=== PATIENT | female | born 1995 | race Caucasian/White ===

== ENCOUNTER 2017-12-15 12:44 | Observation (INO) | payer OTHER ==
[2017-12-15 13:09] VITALS: BMI 28.1
--- NOTE | 2017-12-15 13:12 | PDOC ---
History of Present Illness - General Chief Complaint: Lightheaded Stated Complaint: SOB Time Seen by Provider: 12/15/17 13:09 - History of Present Illness Initial Comments: 12/15/17 13:11 22 yo F with h/o cardiac septal defect, PE (07/31/17), LLE DVT on AC, who p/w SOB, and lightheadedness. Patient reports getting out of shower and experiencing shortness of breath and lightheadedness, without LOC x 5 minutes. Resolved with home O2 ( 4 L NC). O2 typically 92 % 4L NC. Also reports stable, slightly improved, non pleuritic or radiating, retrosternal chest tightness. No identifiable triggers or alleviators. Patient states that she is candidate for heart transplantation and on transplant list for congenital heart defect, with worsening heart function on prior admission at [facility]. 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 Nghia Rowe. Patient denies N/V, PND, cough, hemoptysis, orthopnea, leg swelling, palpitations, F/C, urinary complaints, abdominal pain, diarrhea, constipation, weakness, sensory changes. PMHx: as noted above. Denies h/o ACS/[place], stent placement, CABG ROS: as noted SHx: Tobacco cessation x 1 year ( 3 year ppd), social Etoh. Denies IVDA. No recent travel/immobolization, surgery, trauma. Allergies: NKDA Meds: Denies OCP use. PMD: Not on staff. Past History - Past Medical History Allergies/Adverse Reactions: Allergies Allergy/AdvReac Type Severity Reaction Status Date / Time No Known Allergies Allergy Verified 12/15/17 12:57 Home Medications: Ambulatory Orders Rivaroxaban [Xarelto -] 20 mg PO DAILY 12/15/17 Sertraline HCl [Zoloft] 20 mg PO DAILY 12/15/17 Cardiac Disorders: Yes (hole in heart) COPD: No Other medical history: lle DVT 11/2017 - Surgical History Cardiac Surgery: Yes - Suicide/Smoking/Psychosocial Hx Smoking History: Never smoked Have you smoked in the past 12 months: No Information on smoking cessation initiated: No Hx Alcohol Use: No Drug/Substance Use Hx: No Substance Use Type: None Review of Systems - Review of Systems Comments:: 12/15/17 13:11 GENERAL/CONSTITUTIONAL: No fever or chills. No weakness. HEAD, EYES, EARS, NOSE AND THROAT: No change in vision. No ear pain or discharge. No sore throat. CARDIOVASCULAR: No chest pain or shortness of breath RESPIRATORY: No cough, wheezing, or hemoptysis. GASTROINTESTINAL: No nausea, vomiting, diarrhea or constipation. GENITOURINARY: No dysuria, frequency, or change in urination. MUSCULOSKELETAL: No joint or muscle swelling or pain. No neck or back pain. SKIN: No rash NEUROLOGIC: No headache, vertigo, loss of consciousness, or change in strength/ sensation. ENDOCRINE: No increased thirst. No abnormal weight change HEMATOLOGIC/LYMPHATIC: No anemia, easy bleeding, or history of blood clots. ALLERGIC/IMMUNOLOGIC: No hives or skin allergy. *Physical Exam - Vital Signs Last Vital Signs Temp Pulse Resp BP Pulse Ox 98.6 F 83 20 124/76 83 L 12/15/17 13:01 12/15/17 13:01 12/15/17 13:01 12/15/17 13:01 12/15/17 13:01 - Physical Exam Comments: 12/15/17 13:11 GENERAL: Awake, alert, and fully oriented, in no acute distress HEAD: + Facial swelling.No signs of trauma, normocephalic, atraumatic. EYES: PERRLA, EOMI, sclera anicteric, conjunctiva clear ENT: Auricles normal inspection, hearing grossly normal, nares patent, oropharynx clear without exudates. Moist mucosa NECK: Normal ROM, supple, no lymphadenopathy, JVD, or masses LUNGS: No distress, speaks full sentences, clear to auscultation bilaterally HEART: Regular rate and rhythm, normal S1 and S2, no murmurs, rubs or gallops, peripheral pulses normal and equal bilaterally. ABDOMEN: Soft, nontender, normoactive bowel sounds. No guarding, no rebound. No masses EXTREMITIES : Normal inspection, Normal range of motion, no edema. No clubbing or cyanosis. NEUROLOGICAL: Cranial nerves II through XII grossly intact. Normal speech, normal gait, no focal sensorimotor deficits SKIN: Warm, Dry, normal turgor, no rashes or lesions noted ED Treatment Course - LABORATORY CBC & Chemistry Diagram: 12/15/17 13:29 12/15/17 13:29 Medical Decision Making - Medical Decision Making 12/15/17 13:39 22 yo F with h/o cardiac septal defect, PE ( 07/31/17), LLE DVT on Apixaban who p/w SOB, and lightheadedness. O2 87 % RA, vitals otherwise wnl. AF. Grade 2/6 systolic murmur, and facial swelling. No other findings on physical exam. ACS/ [place] r/o. R/o PNA. PERC + PE, low to moderate risk PE Weils Criteria. Will consider cardiac dysarrythmia, neurogenic or vasovagal syncope, electrolyte abnml, metabolic acid-base disturbances, infection. Ed Course: CBC, CMP, Cardiac Pr. PT/INR, APTT EKG, CXR UA 12/15/17 13:48 EKG: + LVH. NSR with absent FELICE, STD. Nml axis and intervals. 12/15/17 14:40 Patient with recent subclavian cath. R/o SVC syndrome 2/2 clot. RUE U/S. Per Dr. 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 Received one time cath, but not indwelling. Low suspicion of SVC syndrome. Patient with multiple poorly timed CTA chest. Requested to hold off on diagnostic imaging. Will possibly diuretic and Sildafenil. Dr. Bossman Agrawal. [facility]. H/ o failed NOAC. Liver dysfunction 2/2 Etoh abuse. One time dose weight adjusted Lovenox Injection. Lovenox [address] Cruz to arrange for transfer. 12/15/17 16:37 Patient accepted to [facility] Transfer in morning. Per SHAHID Edward patient accepting service will be in service on AM. 12/15/17 17:27 Contacted patient human geography instructor office Dr.Mathew Agrawal [phone]. 12/15/17 19:13 Spoke to provider Cheyanne ( cell phone number [phone]) and patient to be admitted in AM to Dr. Mil agrawal service at [facility]. Gave ptovider Dr. Collins's contact info and location of patient on telemetry/ in [facility] *DC/Admit/Observation/Transfer Diagnosis at time of Disposition: Shortness of breath, Hypoxia - Discharge Dispostion Condition at time of disposition: Stable Decision to Admit order: Yes - Referrals Referrals: Riley Bryson MD [Primary Care Provider] - - Patient Instructions - Post Discharge Activity
[2017-12-15 13:47] LABS: BASO % 0.8 % (0-2.0); EOS % 1.7 % (0-4.5); HEMATOCRIT 37.5 % (32.4-45.2); HEMOGLOBIN 12.4 GM/dL (10.7-15.3); MCH 27.2 pg (25.7-33.7); MCHC 33.1 g/dl (32.0-36.0); MEAN CELL VOLUME 82.3 fl (80-96); MEAN PLT VOLUME 8.3 fl (7.5-11.1); NEUT % 61.5 % (42.8-82.8); PLATELET COUNT 218 K/MM3 (134-434); RBC 4.56 M/mm3 (3.60-5.2); RDW 15.8 % (11.6-15.6); WHITE BLOOD COUNT 6.6 K/mm3 (4.0-10.0)
--- NOTE | 2017-12-15 14:39 | PDOC ---
Attending Attestation - HPI HPI: 12/15/17 16:56 The patient is a 22 year old female, with a significant PMH of cardiac septal defect, left lower extremity DVT on anticoagulant e pulmonary embolism (07/31/17 ) who presents to the emergency department complaining of lightheadedness and shortness of breath. Patient states she received 4 liters from nasal canal secondary to experiencing short of breath and lightheadedness for 5 min after getting out of the shower. PMHx: as noted above. Denies h/o ACS/PR, stent placement, CABG ROS: as noted SHx: Tobacco cessation x 1 year ( 3 year ppd), social Etoh. Denies IVDA. No recent travel/immobolization, surgery, trauma. Allergies: NKDA Meds: Denies OCP use. PMD: Not on staff. Documentation prepared by Tracie Jaeger, acting as medical coding manager for Rivera Langston MD. <Tracie Jaeger - Last Filed: 12/15/17 17:02> - Resident Resident Name: Inocente Aguilera - ED Attending Attestation I have performed the following: I have examined & evaluated the patient, The case was reviewed & discussed with the resident, I agree w/resident's findings & plan, Exceptions are as noted - Physicial Exam PE: 12/15/17 17:06 Patient is awake and alert, well-nourished, in no respiratory distress Normocephalic, atraumatic Face is plethoric No JVD Well-healed tracheostomy scar is noted CTA rrr Soft, nondistended, nontender No lower extremity edema - Medical Decision Making 12/15/17 17:08 22-year-old female with history of unrepaired VSD, Eisenmenger's syndrome, pulmonary hypertension and 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 Patient's symptoms stabilized upon readministration of supplemental O2 via nasal cannula. Patient's O2 saturation improved from 83% to 91% on 4 L via nasal cannula. Will rule out right AG DVT. Case discussed with CT surgery team at [facility] who wishes administration of Lovenox and transfer in the a.m. They requested no additional radiologic test be administered at this time as the patient's had numerous CTAs of chest. <Rivera Langston - Last Filed: 12/15/17 17:10>
[2017-12-15 14:45] LABS: ACTIVATED PTT 37.2 SECONDS (25.2-36.5)
[2017-12-15] MEDS ORDERED: ENOXAPARIN NA (PORCINE) 100 MG/1 ML DISP.SYRIN SQ ONE ×2 (14:52→14:53)
[2017-12-15 17:10] LABS: ALK PHOS 73 U/L (45-117); ANION GAP 9 (8-16); BILIRUBIN,TOTAL 0.4 mg/dL (0.2-1.0); BLOOD UREA NITROGEN 19 mg/dL (7-18); CALCIUM 8.2 mg/dL (8.5-10.1); CHLORIDE 111 mmol/L (98-107); CO2 22 mmol/L (21-32); CREATININE 0.6 mg/dL (0.55-1.02); GLUCOSE,RANDOM 97 mg/dL (74-106); SGOT/AST 26 U/L (15-37); SGPT/ALT 27 U/L (12-78); SODIUM 142 mmol/L (136-145); TOT PROT 8.4 g/dl (6.4-8.2)
--- NOTE | 2017-12-15 19:43 | HP ---
Admitting History and Physical - Primary Care Physician PCP: Lidia Collins - Admission History of Present Illness: 22 yo F with h/o cardiac septal defect, PE (07/31/17), LLE DVT on AC, who p/w SOB, and lightheadedness. Patient reports getting out of shower and experiencing shortness of breath and lightheadedness, without LOC x 5 minutes. Resolved with home O2 ( 4 L NC). O2 typically 92 % 4L NC. Also reports stable, slightly improved, non pleuritic or radiating, retrosternal chest tightness. No identifiable triggers or alleviators. Patient states that she is candidate for heart transplantation and on transplant list for congenital heart defect, with worsening heart function on prior admission at [facility]. 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 - Smoking History Smoking history: Never smoked Have you smoked in the past 12 months: No - Alcohol/Substance Use Hx Alcohol Use: No Home Medications - Allergies Allergies/Adverse Reactions: Allergies Allergy/AdvReac Type Severity Reaction Status Date / Time No Known Allergies Allergy Verified 12/15/17 12:57 - Home Medications Home Medications: Ambulatory Orders Rivaroxaban [Xarelto -] 20 mg PO DAILY 12/15/17 Sertraline HCl [Zoloft] 20 mg PO DAILY 12/15/17 Physical Examination Vital Signs: Vital Signs Temperature 98.6 F 12/15/17 13:01 Pulse Rate 74 12/15/17 17:56 Respiratory Rate 20 12/15/17 17:56 Blood Pressure 117/59 12/15/17 17:56 O2 Sat by Pulse Oximetry (%) 91 L 12/15/17 17:56 Constitutional: Yes: No Distress HENT: Yes: Atraumatic Neck: Yes: Supple Cardiovascular: Yes: Regular Rate and Rhythm Respiratory: Yes: CTA Bilaterally Gastrointestinal: Yes: Normal Bowel Sounds Extremities: Yes: WNL Neurological: Yes: Alert, Oriented Labs: CBC, BMP 12/15/17 13:29 12/15/17 13:29 Imaging - Results Chest X-ray: Report Reviewed Cat Scan: Report Reviewed MRI: Report Reviewed Problem List - Problems (1) Hypoxia Assessment/Plan: ON OXYGEN WILL MONITOR Code(s): R09.02 - HYPOXEMIA (2) Shortness of breath Assessment/Plan: H/O CHF PT TO TRANSFER TO TERTIARY CARE HER DOCTORS ARE THERE Code(s): R06.02 - SHORTNESS OF BREATH Assessment/Plan Laboratory Results - last 24 hr 12/15/17 12/15/17 12/15/17 13:29 13:29 13:29 WBC 6.6 RBC 4.56 Hgb 12.4 Hct 37.5 MCV 82.3 MCH 27.2 MCHC 33.1 RDW 15.8 H Plt Count 218 MPV 8.3 Absolute Neuts (auto) 4.1 Neutrophils % 61.5 Lymphocytes % 23.0 Monocytes % 13.0 H Eosinophils % 1.7 Basophils % 0.8 Nucleated RBC % 0 PTT (Actin FS) 37.2 Sodium 142 Potassium 4.0 Chloride 111 H Carbon Dioxide 22 Anion Gap 9 BUN 19 H Creatinine 0.6 Creat Clearance w eGFR > 60 Random Glucose 97 Calcium 8.2 L Total Bilirubin 0.4 AST 26 ALT 27 Alkaline Phosphatase 73 Creatine Kinase 97 Troponin I < 0.02 Total Protein 8.4 H Albumin 4.0 Serum , Qual 12/15/17 13:30 WBC RBC Hgb Hct MCV MCH MCHC RDW Plt Count MPV Absolute Neuts (auto) Neutrophils % Lymphocytes % Monocytes % Eosinophils % Basophils % Nucleated RBC % PTT (Actin FS) Sodium Potassium Chloride Carbon Dioxide Anion Gap BUN Creatinine Creat Clearance w eGFR Random Glucose Calcium Total Bilirubin AST ALT Alkaline Phosphatase Creatine Kinase Troponin I Total Protein Albumin Serum , Qual Negative Active Medications Generic Name Dose Route Start Last Admin Trade Name Freq PRN Reason Stop Dose Admin Acetaminophen 650 mg 12/15/17 19:44 Tylenol - PO Q6H PRN FEVER Rivaroxaban 20 mg 12/16/17 10:00 Xarelto - PO DAILY [facility] Sertraline HCl 20 mg 12/16/17 10:00 Zoloft - PO DAILY [facility] I HAVE REVIEWED RESIDENTS NOTE PT IS TO BE TRANSFERRED TO [facility]
[2017-12-15] MEDS ORDERED: ACETAMINOPHEN 325 MG TABLET (FP) ONE (23:57)
[2017-12-16 08:04] VITALS: BP 108/65; PULSE 65; TEMP 98.5
[2017-12-16] MEDS ORDERED: ACETAMINOPHEN 325 MG TABLET (FP) ONE (08:52)
[2017-12-16] MEDS: ACETAMINOPHEN 325 MG TABLET (FP) PO PRN ×2 (08:52)
[2017-12-16] MEDS ORDERED: SERTRALINE HCL 25 MG TABLET (FP) PO SCH (10:00)
[2017-12-16 11:06] LABS: INR 1.65 (0.82-1.09); PROTHROMBIN TIME (PATIENT) 18.7 SEC (9.7-13.0)
--- NOTE | 2017-12-16 12:04 | EKG ---
Test Reason : Blood Pressure : / mmHG Vent. Rate : 083 BPM Atrial Rate : 083 BPM P-R Int : 150 ms QRS Dur : 104 ms QT Int : 370 ms P-R-T Axes : 003 -08 -19 degrees QTc Int : 434 ms NORMAL SINUS RHYTHM VOLTAGE CRITERIA FOR LEFT VENTRICULAR HYPERTROPHY NONSPECIFIC T WAVE ABNORMALITY ABNORMAL ECG NO PREVIOUS ECGS AVAILABLE Confirmed by EDWARD GONZALEZ MD ([id number]) on 12/16/2017 12:04:17 PM Referred By: Confirmed By:EDWARD GONZALEZ MD
[2017-12-16] MEDS ORDERED: RIVAROXABAN 20 MG TABLET PO SCH (18:00)
--- NOTE | 2017-12-16 18:59 | DS ---
Physical Examination Vital Signs: Vital Signs Temperature 98.5 F 12/16/17 07:00 Pulse Rate 65 12/16/17 07:00 Respiratory Rate 18 12/16/17 07:00 Blood Pressure 108/65 12/16/17 07:00 O2 Sat by Pulse Oximetry (%) 93 L 12/15/17 21:39 Labs: CBC, BMP 12/15/17 13:29 12/15/17 13:29 Discharge Summary Reason For Visit: SOB,PULMONARY HYPERTENSION,HYPOXIA Condition: Stable - Instructions Referrals: Riley Bryson MD [Primary Care Provider] - Disposition: TRANSFER ACUTE CARE/OTHER HOSP - Home Medications Comprehensive Discharge Medication List: Ambulatory Orders Rivaroxaban [Xarelto -] 20 mg PO DAILY 12/15/17 Sertraline HCl [Zoloft] 20 mg PO DAILY 12/15/17 TRANSFERRED TO TERTIARY CARE
== END 2017-12-16 10:15 | disposition short-term general hospital (02) ==
LOC: JER 12:44 → JERBED 16:38
PROVIDERS: ADMIT Internal Medicine; ATTEND Internal Medicine
PROC: 3E013GC Introduction of Other Therapeutic Substance into Subcutaneous Tissue, Percutaneous Approach (ICD-10-PCS; principal; 2017-12-15)
DX: R06.02 Shortness of breath (principal); R09.02 Hypoxemia; I27.20 Pulmonary hypertension, unspecified; Q21.1 Atrial septal defect; I27.83 Eisenmenger's syndrome; Z86.711 Personal history of pulmonary embolism; Z79.01 Long term (current) use of anticoagulants; Z99.81 Dependence on supplemental oxygen
CPT/HCPCS: 36415; 71045-TC-FY; 80053; 82550; 84484; 84703; 85025; 85610; 85730; 93005; 93010; 93971; 93971-TC; 96372; 99285-25; G0378